=== PATIENT | female | born 1995 | race African-American/Black ===

== ENCOUNTER 2018-09-30 01:07 | Emergency (ER) | payer OTHER ==
[~2018-09-30] VITALS: Ht 170.2 cm; Wt 92.5 kg
[2018-09-30] MEDS ORDERED: IBUPROFEN 400400 M2 PO (01:32)
[2018-09-30] MEDS ORDERED: PSEUDOEPHEDRINE30 MG PO (01:32)
[2018-09-30] MEDS ORDERED: NEXIUM40 MG PO (01:34)
[2018-09-30 01:51] VITALS: BP 120/65
== END 2018-09-30 01:52 | disposition home or self-care (01) ==
LOC: ER 01:07
DX: H69.91 Unspecified Eustachian tube disorder, right ear (principal); Z88.5 Allergy status to narcotic agent

== ENCOUNTER 2020-10-17 21:39 | Emergency (ER) | payer OTHER ==
[~2020-10-17] VITALS: Ht 170.2 cm; Wt 88.5 kg
[~2020-10-17 21:39] MED LIST: IBUPROFEN 400400 M2 PO; NEXIUM40 MG PO; PSEUDOEPHEDRINE30 MG PO
[2020-10-17 21:43] VITALS: BP 140/79
[2020-10-17] MEDS ORDERED: OMEPRAZOLE40 MG PO (21:48)
[2020-10-17] MEDS ORDERED: MEDROLDOSEPACK PO (22:16)
[2020-10-17] MEDS ORDERED: EPIPEN 2-P0.3 MG/0.3 IM (22:16)
== END 2020-10-17 22:32 | disposition home or self-care (01) ==
LOC: ER 21:39
DX: T78.40XA Allergy, unspecified, initial encounter (principal); K21.9 Gastro-esophageal reflux disease without esophagitis; Z79.899 Other long term (current) drug therapy; Z88.8 Allergy status to other drugs, medicaments and biological substances; Y92.89 Other specified places as the place of occurrence of the external cause

== ENCOUNTER 2020-12-21 00:04 | Emergency (ER) | payer OTHER ==
[~2020-12-21] VITALS: Ht 172.7 cm; Wt 97.5 kg
[~2020-12-21 00:04] MED LIST changes: +EPIPEN 2-P0.3 MG/0.3 IM; +MEDROLDOSEPACK PO; +OMEPRAZOLE40 MG PO
[2020-12-21 00:29] LABS: URINE BILIRUBIN NEGATIVE (Negative); URINE BLOOD TRACE (Negative); URINE CLARITY CLEAR; URINE COLOR YELLOW; URINE GLUCOSE-RANDOM* NEGATIVE (Negative); URINE KETONES NEGATIVE (Negative); URINE LEUKOCYTES-REFLEX NEGATIVE (Negative); URINE NITRITE-REFLEX NEGATIVE (Negative); URINE PROTEIN (DIPSTICK) NEGATIVE (Negative); URINE SPECIFIC GRAVITY <= 1.005 (1.005-1.035); URINE UROBILINOGEN 0.2 E.U./dl (0.2-1.0)
[2020-12-21 02:06] VITALS: BP 121/74
== END 2020-12-21 02:06 | disposition home or self-care (01) ==
LOC: ER 00:04
PROVIDERS: Emergency Medicine
DX: K21.9 Gastro-esophageal reflux disease without esophagitis (principal); Z88.5 Allergy status to narcotic agent